=== PATIENT | male | born 1995 | race Caucasian/White ===

== ENCOUNTER 2017-07-21 11:06 | Emergency (ER) | payer OTHER ==
[2017-07-21] MEDS ORDERED: Ibuprofen 800 MG TAB ONE (12:39)
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
== END 2017-07-21 13:40 | disposition home or self-care (01) ==
LOC: ERS 11:06
DX: S16.1XXA Strain of muscle, fascia and tendon at neck level, initial encounter (principal); S60.212A Contusion of left wrist, initial encounter; J45.909 Unspecified asthma, uncomplicated; V43.52XA Car driver injured in collision with other type car in traffic accident, initial encounter
CPT/HCPCS: 72125